=== PATIENT | female | born 2005 | race Two or more races ===

== ENCOUNTER 2025-04-06 10:24 | Outpatient (AMB) | payer OTHER, SELFPAY ==
--- OUTSIDE RECORDS SUMMARY | 2025-04-06 11:03 | XMS_ITS | Clinical Summary ---
Author Organization [facility] Address [address] [place] [address] Care Team Providers Care Surveyor Chain Helper Name Role Phone Unavailable Primary Care Provider Unavailabl e Source Comments PLEASE NOTE, if this patient is a minor, it may be UNLAWFUL to discuss sensitive information that is contained in these records (such as FAMILY PLANNING, MENTAL HEALTH or SUBSTANCE ABUSE) with the minor patient's parent or other person without the patient's specific authorization.[facility] Allergies No known active allergies Medications No known medications Active Problems No known active problems Encounters Date Type Department Care Team Description 02/04/2025 3:40 PM EDT Office Visit [facility] [address] [place] [phone] Ra Garcia DDS from Last 3 Months Social History Tobacco Use Types Packs/Day Years Used Date Smoking Tobacco: Never Passive Smoke Exposure: Never Smokeless Tobacco: Never Tobacco Cessation:Counseling Given: Not Answered Social Connections Answer Date Recorded Connectedness 0 05/16/2024 Financial Resource Strain Answer Date R ecorded Financial Resource Strain 0 2023 Stress Answer Date Recorded Stress 0 04/11/2024 Physical Activity Answer Date Recorded Physical Activity 0 04/11/2024 Food Insecurity Answer Date Recorded Food 0 05/29/2024 Transportation Needs Answer Date Record ed Transportation 0 04/11/2024 Housing Stability Answer Date Recorded Housing 0 04/11/2024 Safety and Environment Answer Date Paulino rded Safety 0 04/11/2024 Utilities Answer Date Recorded Utilities 0 04/11/2024 Employment Answer Date Recorded Stress 0 05/16/2024 Comments Unknown Sex and Gender Information Value Date Recorded Sex Assigned at Not on file Legal Sex Female 10:04 AM PDT Gender Identity Not on file Sexual Orientation Not on file Last Filed Vital Signs Vital Sign Reading Time Taken Comments Blood Pressure 122/76 12/12/2024 2:00 PM EDT Pulse 85 12/12/2024 2:00 PM EDT Temperature - - Respiratory Rate - - Oxygen Saturation - - Inhaled Oxygen Concentration - - Weight - - Height - - Body Mass Index - - Plan of Treatment Upcoming Encounters Date Type Department Care Team (Late st Contact Info) Description 05/28/2025 4:20 PM EDT Office Visit [facility] [address] [place] [phone] Eduardo Joy [address] [place] [address] Health Maintenance Due Date Last Done Comments Anxiety Screening 2005 Dental Perio Charting 2005 Hepatitis C Screening 2005 STI Counseling 2005 Imm-MMR (1 of 1 - Standard series) 2006 Chlamydia Screening 2018 Gonorrhea Screening 2018 Imm-Varicella (1 of 2 - 13+ 2-dose series) 2018 HIV Screening 2020 Imm-HPV (1 - 3-dose series) 2020 Relationship Safety Screening/Counseling 2020 [id number] ( - season) 2024 Imm-DTaP/Tdap/Td (1 - Tdap) 2024 Imm-Hepatitis B (1 of 3 - 19 + 3-dose series) 2024 Alcohol and Drug Screen 09/03/2024 Depression Annual Screen 09/03/2024 Imm-Influenza (#1) 2025 Dental Examination 05/29/2025 11/24/2024, 04/24/2024 Dental Prophy 05/29/2025 11/24/2024, 05/09/2024 Dental BW 11/26/2025 11/24/2024, 04/24/2024 Tobacco Screening 02/04/2026 02/04/2025 Hypertension Screening (#1) 12/12/2027 Dental FMX/Pano 04/26/2029 04/24/2024, 04/14/2024 Imm-Hepatitis A Aged Out No longer el igible based on patient's age to complete this topic Procedures Procedure Name Priority Date/Time Associated Diagnosis Comments INTRAORAL - PERIAPICAL FIRST RADIOGRAPHIC IMAGE Routine 02/04/2025 3:40 PM EDT Symptomatic irreversible pulpitis LIMITED ORAL EVALUATION - PROBLEM FOCUSED Routine 02/04/2025 3:40 PM EDT Symptomatic irreversible pulpitis BITEWINGS - FOUR RADIOGRAPHIC IMAGES Routine 11/24/2024 4:20 PM EDT Caries PROPHYLAXIS - ADULT Routine 11/24/2024 4 :20 PM EDT Caries PERIODIC ORAL EVALUATION ESTABLISHED PATIENT Routine 11/24/2024 4:20 PM EDT Caries Full INTRAORAL - COMP SERIES OF RADIOGRAPHIC IMAGES Routine 04/24/2024 1:00 PM EDT Caries from Last 3 Months or Most Recently Relevant to Health Maintenance Insurance [place] MEDICAID Member Subscriber Plan / Payer (Ef fective 2021-Present) Name:Tanmay Graciela Relation to Subscriber:Self Name:Tanmay Graciela Payer ID:[id number] Group ID:Not on file Type:Medicaid Address: [id number] DENTAL [place] MEDICAID DENTAL
--- OUTSIDE RECORDS SUMMARY | 2025-04-06 11:03 | XMS_ITS | Clinical Summary ---
Author Organization [facility] Address [address] [place] [address] Care Team Providers Care Green Chain Puller Name Role Phone Unavailable Primary Care Provider Unavailabl e Allergies No known active allergies Medications acetaminophen (Tylenol 8 Hour) 650 MG ER tablet Take 1 tablet (650 mg) by mouth every 8 (eight) hours if needed for mild pain. Do not crush, chew, or split. 30 tablet 03/05/2025 Active ibuprofen 600 MG tablet Take 1 tablet (600 mg) by mouth 3 times daily. 30 tablet 03/05/2025 Active amoxicillin (Amoxil) 500 MG capsule Take 1 capsule (500 mg) by mouth every 8 (eight) hours for 7 days. 21 capsule 03/05/2025 03/12/20 25 Active Problems Problem Noted Date Diagnosed Date Symptomatic periapical periodontitis 03/05/2025 Encounters Date Type Department Care Team Description 03/05/2025 1:00 PM EDT Office Visit [facility] [address] [place] [address] Gage Mejias DDS Symptomatic periapical periodontitis (Primary Dx) from Last 3 Months Social History Tobacco Use Types Packs/Day Years Used Date Smoking Tobacco: Never Assessed Comments Unknown Sex and Gender Information Value Date Recorded Sex Assigned at Female 03/05/2025 8:19 AM EDT Legal Sex Female 8:12 AM EDT Gender Identity Female 03/05/2025 8:19 AM EDT Sexual Orientation Straight 03/05/2025 8: 19 AM EDT Plan of Treatment Health Maintenance Due Date Last Done Comments Chlamydia and Gonorrhea Screening 2005 Dental Oral Exam 2005 Dental Prophylaxis 2005 Dental X-Ray: Bitewings 2005 Dental X-Ray: Full Mouth 2005 Depression Screening 2005 HIV Screening 2005 SDOH Screening 2005 Disability Screening 2005 Fluoride Varnish 02/12/2006 MMR Vaccines (1 of 1 - Stand haider series) 2006 Alcohol/Substance Use Screening 2017 Tobacco Screening 2017 Varicella Vaccines (1 of 2 - 13+ 2-dose series) 2018 Family Planning (PISQ) 2020 HPV Vaccines (1 - 3-dose series) 2020 Meningococcal B Vaccine (1 o f 2 - Standard) 2021 Hepatitis C Screening 2023 COVID-19 Vaccine (1 - 2023-2 5 season) 2024 DTaP/Tdap/Td Vaccines (1 - Tdap) 2024 Hepatitis B Vaccines (1 of 3 - 19+ 3-dose series) 2024 Influenza Vaccine (#1) 2025 Zoster Vaccines (1 of 2) 2055 RSV Patients and Pa tients Aged 60 years or older (1 - 1-dose 75+ series) 2080 HIB Vaccines Aged Out No longer eligi ble based on patient's age to complete this topic Hepatitis A Vaccines Aged Out No long er eligible based on patient's age to complete this topic IPV Vaccines Aged Out No longer eligi ble based on patient's age to complete this topic Meningococcal Vaccine Aged Out No raquel thelma eligible based on patient's age to complete this topic Pneumococcal Vaccine: Pediat rics (0 to 5 Years) and At-Risk Patients (6 to 49) Years Aged Out No longer eligible b ased on patient's age to complete this topic RSV under 20 months Aged Out No longe r eligible based on patient's age to complete this topic Rotavirus Vaccines Aged Out No longer eligible based on patient's age to complete this topic Procedures Procedure Name Priority Date/Time Associated Diagnosis Comments LIMITED ORAL EVALUATION - PROBLEM FOCUSED Routine 03/05/2025 1:00 PM EDT 18 INTRAORAL - PERIAPICAL FIRST RADIOGRAPHIC IMAGE Routine 03/05/2025 1:00 PM EDT CASE PRESENTATION, DETAILED AND EXTENSIVE TREATMENT PLANNING Routine 03/05/2025 1:00 PM EDT 19 MO COMPOSITE FILLING Routine 03/05/20 12:00 AM EDT 18 O COMPOSITE FILLING Routine 5 12:00 AM EDT from Last 3 Months Insurance [facility] MEDICAID STAND ADULT
--- NOTE | 2025-04-06 11:06 | AM.OFFWIN_ITS ---
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 c/o numbness RT side of face Director Of Email Marketing Required: Yes Director Of Email Marketing Name: Awais #[id number] Allergies No Known Allergies Allergy (Verified 04/06/25 11:12) Do you need a note to return to daycare/school/sports/work: No HPI HPI Comments History of Present Illness Details History of Present Illness - The patient is a 19-year-old [place] s peaking female presenting with facial asymmetry and inability to close her right eye properly. - Symptoms began a week ago with tearing and pain under the right eye, progressing to difficulty with facial movements. - She experiences discomfort during acti vities like showering due to inability to close the right eye. - Recently developed sore throat and fev er. - No previous similar episodes and lacks a primary care physician. - She denies PURI, ear pain, cough, CP, SO B, visual changes, blurry visions, weakness, dizziness or confusion. Physical Exam General: Cooperative, healthy appearing, comfortable, no acute distress and well developed Orientation: Patient oriented x3 Limitations: No limitations Head: Normal to inspection Ears: Hearing grossly normal bilaterally Nose: Normal external nose present Face and sinus: Abnormal facial exam; asymmetrical facial movement Eyes: Appearance abnormal; tearing noted. Can't close eyelid all the way. Neck: Normal visual inspection and Yes full ROM Respiratory: Normal respiratory effort and able to speak in complete sentences. Clear to auscultation bilaterally Cardiovascular: Regular rate and rhythm. Normal S1 and S2 GI: Normal to inspection. Soft to palpation and nontender Skin: No rashes or lesions noted Neuro: Patient oriented x3. Facial droop noted on the right. Unable to smile on the right, corner of mouth drooping. Unable to lift eyebrow on the right. Extremities: Normal to inspection; strength is good and equal 5/5 on the UE and LE. Patient was informed and verbally consented to the use of an ambient scribe for clinic note documentation during this visit. 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 - valtrex 1 gm TID for 7 days - eye drops to the right eye - eye patch to protect eye when sleeping - Recommend finding a primary care physician for future health needs. - Advise emergency room visit if no improvement with treatment. Medications: New prednisone 60 mg (3 x 20 mg) PO daily 21 tabs 0RF 7 days valacyclovir 1,000 mg PO Q8H 21 tabs 0RF 7 days Coding Level of Care Code Est Pt Level 4 (09719) Diagnoses Claros's palsy G51.0
[2025-04-06 11:07] VITALS: BP 102/64; PULSE 82; TEMP 36.6; O2SAT 98
== END 2025-04-06 11:57 | disposition home or self-care (01) ==
PROVIDERS: Visit Provider Physician Assistant Medical
DX: G51.0 Bell's palsy (principal)

== ENCOUNTER → 2025-04-06 10:24 | Outpatient (BNVA) | payer OTHER, SELFPAY | PROVIDERS: Visit Provider Physician Assistant Medical | DX: G51.0 Bell's palsy (principal) | CPT/HCPCS: 99212 ==

== ENCOUNTER 2025-04-22 12:24 | Outpatient (REF) | payer OTHER, SELFPAY ==
[2025-04-23 05:53] LABS: Lyme Abs Screen <0.90 index
== END 2025-04-22 12:25 | disposition home or self-care (01) ==
LOC: HO.HMGCLDS 12:24
PROVIDERS: Visit Provider Physician Assistant
DX: G51.0 Bell's palsy (principal); H57.89 Other specified disorders of eye and adnexa; Z01.84 Encounter for antibody response examination
CPT/HCPCS: 36415; 86617; 86618; 99212

== ENCOUNTER 2025-04-22 12:24 | Outpatient (AMB) | payer OTHER, SELFPAY ==
--- NOTE | 2025-04-22 12:37 | MHC.OFFWIV ---
Intake Vital Signs 04/22/25 12:40 Weight 154 lb BP 100/66 Blood Pressure Location Lt brachial Position Sitting Pulse 92 Pulse Source Pulse Oximeter Temp 98.6 F Temp Source Oral Pulse Oximetry (%) 99 Oxygen Delivery Method Room Air Intake Visit Reasons: EP still having problems with RT side of face Intake Note: presents with continuos concerns for claros's palsy, states her s/s are improved after taking prednisone and valacycovir and is hoping for refills Home Appliance Installer Required: Yes Home Appliance Installer Language: [employer]obile Club Membership Sales Agent Name: [phone] [id number] Allergies No Known Allergies Allergy (Verified 04/22/25 12:42) Do you need a note to return to daycare/school/sports/work: No HPI HPI Comments History of Present Illness Details Patient is a 19yo F who presents post Cory Palsy Video screen print operator used throughout entire interview She was diagnosed with Cory Palsy on 04/06/25 after having symptoms x 1 week Admits to R sided eye and lip drooping. She was given valacyclovir and prednisone Symptoms improved on L side She said she has 4 pills left for this week She said as for remaining symptoms, she has mouth drooping still She said eye feels fine and sometimes has minimal eye watering and sometimes still gets soap in her eye in the shower because of inability to fully close. No fever or chills Denies rashes or working outside or known tick bite She has no doctors so she has not had any follow up Patient said she has not experienced any lyme disease symptoms such as headaches, body aches or fatigue No other weakness numbness or tingling elsewhere on her body Review of Systems Const Denies chills, Denies fatigue, Denies fever(s), Denies headache(s) and Denies weakness Eyes Denies blurry vision, Denies change in vision, Reports eye discharge (slight tearing) and Reports other (improved R lateral eye drooping) ENT Denies dizziness, Denies otalgia, Denies headache(s), Denies nasal congestion and Denies throat swelling Card Denies chest pain and Denies syncope Resp Denies cough Musc Denies numbness and Denies tingling Skin/Breast Denies rash and Denies skin pain Neuro Denies confusion, Denies dizziness, Denies syncope, Denies headache(s), Denies numbness, Denies tingling and Denies weakness Psych Denies confusion Endo Denies fatigue Aller/Immun Denies throat swelling Physical Exam Exam Exam: General: Non-toxic, NAD. Speaking full sentences. Skin: Warm dry throughout. No vesicular lesions noted to face, neck. scalp. Face has no edema or erythema Eye: EOMI, PERRL. No conjunctival erythema or discharge noted. HENT: Airway patent. Uvula midline. No pharyngeal erythema or edema. No INTERMEDIATE DESIGNER. Bilateral canals clear. TM non-erythematous, non-bulging. No TM perforation or hemotympanum noted. Respiratory: CTA bilaterally. No wheezes, rales or rhonchi Cardiac: RRR. No murmur MSK: Full ROM extremities. Neurology: A/O x 3. CN testing shows deficit R side on facial nerve. Facial movement shows slight drooping R side of mouth with smiling. Unable to fully blow out R cheek. It appears pt can fully open and close bilateral eyelids. No aphasia. 5/5 strength upper extremities. Gait without abnormality Psych: Good mood and affect Vital Signs: Last Vital Signs Temp 98.6 F 04/22/25 12:40 Pulse 92 04/22/25 12:40 BP 100/66 04/22/25 12:40 Pulse Ox 99 04/22/25 12:40 Oxygen Delivery Method Room Air 04/22/25 12:40 Const General: No confusion Orientation/consciousness: No confusion Neuro General: No confusion Assessment & Plan Assessment & Plan (1) Claros palsy: Code(s): G51.0 - Claros's palsy Plan: Patient seen and evaluated. Symptoms consistent with Cory Palsy. Discussed she was on appropriate duration of both medications. Acyclovir can be given for 10 days total so will give 3 additional says of antiviral. Discussed no additional prednisone warranted Discussed lyme disease lab Physical exam rules of herpes zoster, acute CVA. Discussed importance of seeing a new PCP and recommended she stop at the front to make appointment Also discussed need for 3-4 months of resolution of symptoms but if anything worsens or changes to be seen immediately Patient gave verbal understanding and had no additional questions or concerns at time of discharge All questions answered video screen print operator used the entire visit. Orders: Orders Lyme IgG/IgM w/reflex to WB Today G51.0 - Claros's palsy Medications: New valacyclovir 1,000 mg PO Q8H 9 tabs 0RF 3 days Coding Level of Care Code Est Pt Level 3 (54550) Diagnoses Claros palsy G51.0
[2025-04-22 12:40] VITALS: BP 100/66; PULSE 92; TEMP 37; O2SAT 99
--- OUTSIDE RECORDS SUMMARY | 2025-04-22 13:19 | XMS_ITS | Clinical Summary ---
Author Organization [facility] Address [address] [place] [address] Care Team Providers Care English Horn Player Name Role Phone Unavailable Primary Care Provider [...] Description 02/04/2025 3:40 PM EDT Office Visit [facility] [address] [place] [phone] Ra Garcia DDS from Last 3 Months [...] Description 05/28/2025 4:20 PM EDT Office Visit [facility] [address] [place] [phone] Eduardo Joy [address] [place] [address] Health Maintenance Due Date Last Done Comments Anxiety Screening 2005 Dental Perio Charting 2005 Hepatitis C Screening 2005 STI Counseling 2005 Imm-MMR (1 of 1 - Standard series) 2006 Chlamydia Screening 2018 Gonorrhea Screening 2018 Imm-Varicella (1 of 2 - 13+ 2-dose series) 2018 HIV Screening 2020 Imm-HPV (1 - 3-dose series) 2020 Relationship Safety Screening/Counseling 2020 [id number] ( - season) 2024 Imm-DTaP/Tdap/Td (1 - [...] Most Recently Relevant to Health Maintenance Insurance [place] MEDICAID Member Subscriber Plan / Payer (Ef fective 2021-Present) Name:Tanmay Graciela Relation to Subscriber:Self Name:Tanmay Graciela Payer ID:[id number] Group ID:Not on file Type:Medicaid Address: [id number] DENTAL [place] MEDICAID DENTAL
--- OUTSIDE RECORDS SUMMARY | 2025-04-22 13:19 | XMS_ITS | Clinical Summary ---
Author Organization [facility] Address [address] [place] [address] Care Team Providers Care C2 Tactical Analysis Technician Name Role Phone Unavailable Primary Care Provider [...] 3 times daily. 30 tablet 03/05/2025 Active Active Problems Problem Noted Date Diagnosed Date Symptomatic periapical periodontitis 03/05/2025 Encounters Date Type Department Care Team Description 03/05/2025 1:00 PM EDT Office Visit [facility] [address] [place] [address] Gage Mejias DDS Symptomatic periapical periodontitis (Primary [...] EDT 19 MO COMPOSITE FILLING Routine 03/05/20 25 12:00 AM EDT 18 O COMPOSITE FILLING Routine 5 12:00 AM EDT from Last 3 Months Insurance [facility]AL[facility] MEDICAID STAND ADULT
== END 2025-04-22 13:06 | disposition home or self-care (01) ==
PROVIDERS: Visit Provider Physician Assistant
DX: G51.0 Bell's palsy (principal)

== ENCOUNTER 2025-06-03 11:12 | Outpatient (AMB) | payer OTHER, SELFPAY ==
--- NOTE | 2025-06-03 11:28 | MHC.OFFWIV ---
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 - The ear pain began approximately four days ago, initially presenting as a clogged sensation in the left ear, which gradually progressed to significant pain. - The patient reports associated symptoms including neck pain, headache, throat discomfort, and chills. - The patient has not attempted to clean the ear due to concerns about exacerbating the condition. - There is no history of ear discharge, but the patient experiences a clicking sound and heightened auditory sensitivity in the affected ear. - The patient has been taking Tylenol for pain relief, but the pain persists, prompting the visit. - The patient denies any antibiotic allergies. - She denies drainage, bleeding, PURI, dizziness, fever, chills, sore throat, or cough. Physical Exam General: Cooperative, healthy appearing, comfortable, no acute distress and well developed Ears: External ears normal bilaterally. No tragus or mastoid tenderness noted. Tympanic membrane rupture suspected on the left side with blood in the canal. Face and sinus: Normal facial exam. No TTP of the sinuses. Neck: Tenderness noted. Normal visual inspection. Full ROM. No lymphadenopathy noted. Respiratory: Normal respiratory effort and able to speak in complete sentences. Clear to auscultation bilaterally. No w/r/r noted. Cardiac: RRR, no m/r/g noted. Normal S1 and S2 noted. Skin: No rashes or lesions noted Patient was informed and verbally consented to the use of an ambient scribe for clinic note documentation during this visit. Review of Systems Const All systems reviewed & are unremarkable except as noted in HPI and below Physical Exam Vital Signs: Last Vital Signs Temp 98.5 F 06/03/25 11:32 Pulse 82 06/03/25 11:32 BP 116/60 06/03/25 11:32 Pulse Ox 99 06/03/25 11:32 Oxygen Delivery Method Room Air 06/03/25 11:32 Assessment & Plan Assessment & Plan (1) Tympanic membrane rupture: Code(s): H72.90 - Unspecified perforation of tympanic membrane, unspecified ear Qualifiers: Laterality: left Qualified Code(s): H72.92 - Unspecified perforation of tympanic membrane, left ear Plan Most likely TM rupture vs OE vs OM vs effusion plan - avoid water or anything in the ears - Prescribe antibiotics to address the ear infection and alleviate pain. - Recommend the use of Tylenol or Motrin for pain management. - Advise follow-up with primary care if symptoms do not improve, with potential referral to a specialist. Medications: New amoxicillin-pot clavulanate 875-125 mg 1 tab PO Q12H PRN 20 tabs 0RF TM rupture 10 days Coding Level of Care Code Est Pt Level 3 (35033) Diagnoses Perforation of left tympanic membrane H72.92 Laterality: left
[2025-06-03 11:32] VITALS: BP 116/60; PULSE 82; TEMP 36.9; O2SAT 99
--- OUTSIDE RECORDS SUMMARY | 2025-06-03 12:46 | XMS_ITS | Clinical Summary ---
Author Organization [facility] Address [address] [place] [address] Care Team Providers Care Manager Report Name Role Phone Unavailable Primary Care Provider [...] medications Active Problems No known active problems Social History Tobacco Use Types Packs/Day Years [...] Mass Index - - Plan of Treatment Health Maintenance Due Date Last Done Comments Anxiety Screening 2005 Dental Perio Charting 2005 Hepatitis C Screening 2005 STI Counseling 2005 Imm-MMR (1 of 1 - Standard series) 2006 Chlamydia Screening 2018 Gonorrhea Screening 2018 Imm-Varicella (1 of 2 - 13+ 2-dose series) 2018 HIV Screening 2020 Imm-HPV (1 - 3-dose series) 2020 Relationship Safety Screening/Counseling 2020 Imm-DTaP/Tdap/Td (1 - Tdap) 2024 Imm-Hepatitis B (1 of 3 - 19 + 3-dose series) 2024 Alcohol and Drug Screen 09/03/2024 Depression Annual Screen 09/03/2024 [id number] ( season) 2025 Imm-Influenza (#1) 2025 Dental Examination 05/29/2025 11/24/2024, 04/24/2024 Dental Prophy 05/29/2025 11/24/2024, 05/09/2024 Dental BW 11/26/2025 11/24/2024, 04/24/2024 Tobacco Screening 02/04/2026 02/04/2025 Hypertension Screening (#1) 12/12/2027 Dental FMX/Pano 04/26/2029 04/24/2024, 04/14/2024 Imm-Hepatitis A Aged Out No longer el igible based on patient's age to complete this topic Imm-IPV (Polio) Aged Out No longer el igible based on patient's age to complete this topic Procedures Procedure Name Priority Date/Time Associated Diagnosis Comments BITEWINGS - FOUR RADIOGRAPHIC IMAGES Routine 11/24/2024 4:20 PM EDT Caries PROPHYLAXIS - ADULT Routine 11/24/2024 4 :20 PM EDT Caries PERIODIC ORAL EVALUATION ESTABLISHED PATIENT Routine 11/24/2024 4:20 PM EDT Caries Full INTRAORAL - COMP SERIES OF RADIOGRAPHIC IMAGES Routine 04/24/2024 1:00 PM EDT Caries from Last 3 Months or Most Recently Relevant to Health Maintenance Insurance [place] MEDICAID Member Subscriber Plan / Payer (Ef fective 2021-Present) Name:Graciela Donato Relation to Subscriber:Self Name:Graciela Donato Payer ID:[id number] Group ID:Not on file Type:Medicaid Address: [address] [place] [id number] [place] [address] DENTAL [place] DENTAL
--- OUTSIDE RECORDS SUMMARY | 2025-06-03 12:46 | XMS_ITS | Clinical Summary ---
Author Organization [employer] Address [address] [place] [address] Care Team Providers Care Dust Operator Name Role Phone Unavailable Primary Care Provider [...] Description 03/05/2025 1:00 PM EDT Office Visit [facility] [address] [place] [address] Gage Mejias DDS Symptomatic periapical periodontitis (Primary [...] - Standard) 2021 Hepatitis C Screening 2023 DTaP/Tdap/Td Vaccines (1 - Tdap) 2024 Hepatitis B Vaccines (1 of 3 - 19+ 3-dose series) 2024 COVID-19 Vaccine (1 - 2023-2 5 season) 2025 Influenza Vaccine (#1) 2025 Zoster Vaccines (1 [...] AM EDT from Last 3 Months Insurance DENTAL-[facility] MEDICAID STAND ADULT [facility] STANDARD [facility] MEDICAID STAND ADULT
== END 2025-06-03 12:16 | disposition home or self-care (01) ==
PROVIDERS: Visit Provider Physician Assistant Medical
DX: H72.92 Unspecified perforation of tympanic membrane, left ear (principal)

== ENCOUNTER → 2025-06-03 11:12 | Outpatient (BNVA) | payer OTHER, SELFPAY | PROVIDERS: Visit Provider Physician Assistant Medical | DX: H72.92 Unspecified perforation of tympanic membrane, left ear (principal) | CPT/HCPCS: 99212 ==

== ENCOUNTER 2025-06-03 13:06 | Emergency (ER) | payer OTHER, SELFPAY ==
[2025-06-03 13:44] VITALS: BP 113/62; PULSE 69; RESP 16; TEMP 36.7; O2SAT 99; BMI 30.2
--- NOTE | 2025-06-03 14:09 | ED.EAR ---
HPI - Ear Problem General Chief complaint: Ear Problems Stated complaint: L side neck pain/headache Time Seen by Provider: 06/03/25 14:09 Source: patient and RN notes reviewed Mode of arrival: ambulatory Limitations: no limitations History of Present Illness ED Provider: Viktoria Portillo PA-C [facility] Narrative: This is a 19-year-old female who presents emergency department with concerns of left ear pain which started 4 days ago. Patient states that she went to an urgent care this morning and they ?did not do anything for her . Upon review of this urgent care note, patient was diagnosed with otitis media versus TM perforation and was prescribed antibiotics. 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 She states that she took Tylenol however this did not help her with any pain. She denies any fevers or chills. No ear discharge. She does report decreased hearing in her left ear. Denies placing any objects in her left ear. No other complaints or concerns at this time. MD Complaint: ear pain and decreased hearing Location: left ear Duration: constant Relieving factors: nothing Exacerbating factors: nothing Discharge from ear: no Associated symptoms ear: decreased hearing Related Data Home Medications ?Medication ?Instructions ?Recorded ?Confirmed norgestrel 0.3 mg-ethinyl 1 tab PO DAILY 04/06/25 estradiol 30 mcg tablet (Jaguar (28)) Previous Rx's ?Medication ?Instructions ?Recorded amoxicillin 875 mg-potassium 1 tab PO Q12H PRN TM rupture 10 06/03/25 clavulanate 125 mg tablet days #20 tabs Allergies Allergy/AdvReac Type Severity Reaction Status Date / Time No Known Allergies Allergy Verified 06/03/25 13:47 Review of Systems Review of Systems: Constitutional : No Fever, No Chills ENT/Mouth : No sore throat, No Rhinorrhea Eyes: No Eye Pain, No Swelling, No Redness Cardiovascular : No Chest Pain, No SOB Respiratory : No Cough, No Sputum Gastrointestinal : No Nausea, No Vomiting, No Diarrhea, No abdominal Pain Genitourinary : No Dysuria, No Hematuria Musculoskeletal : No joint pain, No Myalgias, No Joint Swelling Skin : No Skin Lesions, positive skin rash Neuro : No Weakness, No Numbness All other systems reviewed and are negative Yes all other systems are reviewed and are negative Constitutional: Constitutional: Reports as per [facility] Past Medical History Attestation statement: The following information was validated with the patient. Social History Social History Advance Directives: No Advance Directives Information Provided: Yes Do you have a plan to hurt others: No Plan Physical Exam Exam: Exam: General: Awake, alert, and oriented X3. No acute distress. HEENT: Left TM with exudates noted, slight blood noted in the ear canal. Mild pain with palpation overlying the tragus. No mastoid fluctuance or pain. No cervical lymphadenopathy noted. CVS: Normal heart rate and rhythm. Pulses normal. Respiratory: No respiratory distress Skin: Warm, dry, no rashes noted to exposed skin. Normal skin color. Normal skin turgor. Extremities: Normal to inspection Neuro: Oriented X 3. No motor deficit. No sensory deficit. Vital Signs: Vital Signs: Last Vital Signs Temp 98.1 F 06/03/25 14:16 Pulse 69 06/03/25 14:16 Resp 16 06/03/25 14:16 BP 113/62 06/03/25 14:16 Pulse Ox 99 06/03/25 14:16 O2 Del Method Room Air 06/03/25 14:16 BMI result Body Mass Index 30.2 Medical Decision Making Medical Decision Making MDM Narrative: This is a 19-year-old female who presents emergency department with concerns of left ear pain. On arrival, vital signs within normal limits. Left ear with evidence om, possible TM perforation. She was already prescribed antibiotics. Encouraged to take ibuprofen and Tylenol. Given strict return precautions, she understands and agrees with plan. Patient stable for discharge. Differential Diagnosis Differential Diagnoses: The differential diagnosis associated with the presentation includes Om, awake, TM perforation, otalgia Discharge Plan Discharge Clinical Impression: Otitis media Patient Disposition: Home, Self-Care Instructions: Ear Infection (ED) Additional Instructions: You were seen in the emergency department due to left ear pain. You are already seen at urgent care this morning you were prescribed Augmentin. Please take the full course. Take ibuprofen and or Tylenol as needed for pain and symptoms. She has ibuprofen 600 mg every 6 hours, 2 hours later you may take Tylenol a 1000 mg. Alternating between both of these medications can provide you with some relief. If any new or worsening symptoms occur including but not limited to worsening pain, please return for re-evaluation. You may also follow-up with the [facility]. Prescriptions: No Action amoxicillin-pot clavulanate 875-125 mg tablet 1 tab PO Q12H PRN (Reason: TM rupture) 10 Days Qty: 20 0RF Cryselle (28) 0.3-30 mg-mcg tablet 1 tab PO DAILY Referrals: [facility] [Provider Group] Interventions: ED Discharge Assessment Last Done: 06/03/25 14:16 ED Discharge Assessment Last Done: 06/03/25 14:15 Discharge Date/Time: 06/03/25 14:17 Print Language: Nepali
[2025-06-03 14:15] VITALS: BP 113/62; PULSE 69; RESP 16; TEMP 36.7; O2SAT 99
[2025-06-03 14:16] VITALS: BP 113/62; PULSE 69; RESP 16; TEMP 36.7; O2SAT 99
== END 2025-06-03 14:17 | disposition home or self-care (01) ==
PROVIDERS: Emergency Provider Emergency Medicine
DX: H66.92 Otitis media, unspecified, left ear (principal)
CPT/HCPCS: 99282; 99283

== ENCOUNTER 2025-06-06 13:54 | Emergency (ER) | payer OTHER, SELFPAY ==
--- NOTE | ~2025-06-06 | CT_ITS ---
CLINICAL HISTORY: pain, concern for mastoiditis CT temporal bones without contrast Comparison: None available Findings: Left auricular/periauricular soft tissue swelling. Narrowing of the left external auditory canal with secretions. Thickness of the left tympanic membrane is not well evaluated due to adjacent secretions. Partial opacification of the left middle ear cavity. The left mastoid air cells are clear. No right auricular/periauricular soft tissue swelling. Normal right external auditory canal. No thickening of the right tympanic membrane. The right middle ear cavity and mastoid air cells are clear. Bilateral middle ear ossicles, cochlea, semicircular canals, internal auditory canals and 7th nerve courses are normal. The scutum are sharp bilaterally. Clear paranasal sinuses. Temporomandibular joints are intact. No acute fracture or dislocation. Impression: Left otitis externa and otitis media. No left mastoiditis. This document has been electronically signed by: Renee Amin MD on 06/06/2025 16:54:01
[2025-06-06 14:09] VITALS: BP 116/67; PULSE 87; RESP 18; TEMP 36.4; O2SAT 98; BMI 28.3
--- NOTE | 2025-06-06 14:09 | ED_ITS ---
HPI - General Adult General Chief complaint: Ear Problems Stated complaint: ear pain, seen here a few days ago Time Seen by Provider: 06/06/25 14:24 Source: patient Mode of arrival: ambulatory Limitations: no limitations History of Present Illness HPI narrative: 19-year-old female presents for evaluation of left ear pain. Patient states she was seen in the emergency department on June 03 after going to urgent care because of left ear pain. At that time she was told that she had a TM perforation and was placed on Augmentin. Patient states she has been taking this medication since then. She presents to the emergency department because of the pain. Today the patient states she is unable to hear out of her left ear and is having increased pain to the left ear, jaw and some radiating to the back of her head. She denies any fevers chills nausea or vomiting. No nausea or vomiting. No vertiginous symptoms. She has otherwise been feeling well. No history of similar. No history of diabetes. Related Data Home Medications ?Medication ?Instructions ?Recorded ?Confirmed norgestrel 0.3 mg-ethinyl 1 tab PO DAILY 04/06/25 estradiol 30 mcg tablet (Jaguar (28)) Previous Rx's ?Medication ?Instructions ?Recorded amoxicillin 875 mg-potassium 1 tab PO Q12H PRN TM rupt ure 10 06/03/25 clavulanate 125 mg tablet days #20 tabs ciprofloxacin HCl 0.2 % ear drops 0.25 ml otic (ears) Q12H #14 ea 06/06/25 in a dropperette Allergies Allergy/AdvReac Type Severity Reaction Status Date / Time No Known Allergies Allergy Verified 06/06/25 14:15 Review of Systems 2 Review of Systems: Yes all other systems are reviewed and are negative Constitutional: Constitutional: Reports headache(s) Eyes: Eyes: Denies diplopia ENT: Denies vertigo, Denies dizziness, Reports ear discharge, Reports otalgia, Reports headache(s), Reports hearing loss, Denies sore throat and Denies throat swelling Respiratory: Respiratory: Denies cough Neurologic: Denies vertigo, Denies dizziness and Reports headache(s) Allergic/Immunologic: Allergic/Immunologic: Denies throat swelling PMFSH Social History Social History Advance Directives: No Advance Directives Information Provided: Yes Do you have a plan to hurt others: No Plan Physical Exam ED Vital Signs: Vital Signs - 24 hr 06/06/25 14:09 06/06/25 17:50 Temperature 97.6 F 0 F L Pulse Rate 87 74 Respiratory Rate 18 18 Blood Pressure 116/67 112/64 Pulse Oximetry 98 99 Oxygen Delivery Method Room Air Room Air BMI result Body Mass Index 28.3 HENMT Other: Right auditory canal is patent with a pearly white TM. Left auditory canal has copious amounts of purulent whitish material just past the entrance to the auditory canal. Unable to view distal or the TM. Oropharynx is moist. There was no erythema. No evidence of [employer]. Tolerate secretions. Full range of motion of the mandible. Neck Other: Mild tenderness to the left mastoid region without any crepitus or erythema. No Brudzinski. Lymphatic: no lymphadenopathy noted Resp Auscultation: clear to auscultation bilaterally Cardio Rate: regular rate Rhythm: regular rhythm Course Course Course Narrative: Medical screening exam performed. Please refer to detailed history, exam, evaluation, and management by primary provider. Reevaluation(s) Reevaluation #1: CT returned, no evidence of mastoiditis. Confirming otitis media and otitis externa. Unable to confirm on CT or with physical exam if TM is intact. We will add ciprofloxacin drops. Patient also providing ENT referral. 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 She expresses understanding and has no further questions at this time. Medical Decision Making Medical Decision Making [facility] Narrative: 19-year-old female with no significant medical history, presents with worsening left ear pain and hearing loss due to recent otitis media and TM perforation. Parent discharge is noted. No improvement in symptoms despite antibiotics. Due to the patient complaining of left jaw and mastoid pain, we will further assess for mastoiditis however lower suspicion given that the patient is not having severe pain, fevers. Check labs, CT. Discussed with Dr. Downey. If negative, patient will be discharged home with ear drops and follow up with ENT. Differential Diagnosis Differential Diagnoses: The differential diagnosis associated with the presentation includes Mastoiditis Otitis media Otitis externa TM perforation Lab Data MDM Lab Attestation statement: I reviewed the patient's lab results. 06/06/25 14:38 06/06/25 14:38 Labs: Lab Results 06/06/25 Range/Units 14:38 WBC 9.2 (4.8-10.8) X10*3/uL RBC 4.56 (4.20-5.50) X10*6/uL Hgb 12.9 (12.0-16.0) g/dl Hct 38.6 (37.0-47.0) % MCV 84.6 (80.0-98.0) fL MCH 28.3 (27.0-33.0) pg MCHC 33.4 (31.0-35.0) g/dl RDW 13.3 (11.0-16.0) % Plt Count 251 (160-400) X10*3/uL MPV 10.7 (9.4-12.3) fL Immature Gran % (Auto) 0.2 (0.0-0.4) % Neut % (Auto) 60.5 (45-73) % Lymph % (Auto) 27.5 (20-40) % [place] % (Auto) 7.8 (2-11) % Eos % (Auto) 3.7 (0-4) % Baso % (Auto) 0.3 (0-2) % Lymph # (Auto) 2.5 (1.2-4.9) X10*3/uL [place] # (Auto) 0.7 (0.1-1.2) X10*3/uL Eos # (Auto) 0.3 (0.0-0.4) X10*3/uL Baso # (Auto) 0.0 (0.0-0.2) X10*3/uL Abs Immat Gran (auto) 0.02 (0.00-0.03) X10*3/uL Absolute Neuts (auto) 5.6 (2.0-8.3) x10*3/uL Absolute Nucleated RBC 0.000 (0.0-0.012) X10*3/uL Nucleated RBC % (auto) 0.0 (0.0-0.2) /100WBC Sodium 139 (135-145) mmol/L Potassium 3.8 (3.3-5.1) mmol/L Chloride 106 (96-108) mmol/L Carbon Dioxide 26 (22-29) mmol/L Anion Gap 11 L (12-20) BUN 7 L (9-16) mg/dL Creatinine 0.53 (0.5-1.4) mg/dL Estim Creat Clear Calc 150.5 Estimated GFR > 60 Random Glucose 78 (60-115) mg/dL Calcium 9.6 (8.4-10.2) mg/dL Radiology Impression Discussion of test interpretation with radiology: I have reviewed the radiologist's reading. Radiologist Impression: [address] [address] [address] Scan Report Signed Patient: Graciela Cody MR#: [id number] : 2005 Acct:[id number] Age/Sex: 19 / F ADM Date: 06/06/25 Loc: HO.ED Attending Dr: Ordering Physician: Emiilano Fuentes Date of Service: 06/06/25 Procedure(s): CT mastoid Accession Number(s): [id number] cc: Physician,Unknown ; Emiliano Fuentes~ Report Number: [id number]: Total DLP = 287.00 mGy-cm Reason for Exam: pain, concern for mastoiditis CLINICAL HISTORY: pain, concern for mastoiditis CT temporal bones without contrast Comparison: None available Findings: Left auricular/periauricular soft tissue swelling. Narrowing of the left external auditory canal with secretions. Thickness of the left tympanic membrane is not well evaluated due to adjacent secretions. Partial opacification of the left middle ear cavity. The left mastoid air cells are clear. No right auricular/periauricular soft tissue swelling. Normal right external auditory canal. No thickening of the right tympanic membrane. The right middle ear cavity and mastoid air cells are clear. Bilateral middle ear ossicles, cochlea, semicircular canals, internal auditory canals and 7th nerve courses are normal. The scutum are sharp bilaterally. Clear paranasal sinuses. Temporomandibular joints are intact. No acute fracture or dislocation. Impression: Left otitis externa and otitis media. No left mastoiditis. This document has been electronically signed by: Renee Amin MD on 06/06/2025 16:54:01 Dictated By: Renee Gill MD Signed By: <Electronically signed by Renee Gill MD in OV> 06/06/251654 DD/ 53 TD/TT: 06/06/251653 [employer]: Discharge Plan Discharge Clinical Impression: Otitis media Qualifiers: Otitis media type: unspecified Chronicity: acute Qualified Code(s): H66.90 - Otitis media, unspecified, unspecified ear Otitis externa Qualifiers: Otitis externa type: diffuse Chronicity: acute Laterality: left Qualified Code(s): H60.312 - Diffuse otitis externa, left ear Patient Disposition: Home, Self-Care Instructions: Swimmer's Ear (ED), Ear Infection (ED) Additional Instructions: Continue Augmentin as directed. Finish all antibiotics. Ciprofloxacin drops as directed. Tylenol or ibuprofen available [id number] for pain. ENT referral if symptoms do not improve. Follow-up with your primary care provider. Call this week to schedule a follow- up appointment. Return to the emergency department if you have any worsening of symptoms, or any concerns. Get well soon! Prescriptions: New ciprofloxacin HCl 0.2 % dropperette 0.25 ml otic (ears) Q12H Qty: 14 0RF No Action amoxicillin-pot clavulanate 875-125 mg tablet 1 tab PO Q12H PRN (Reason: TM rupture) 10 Days Qty: 20 0RF Cryselle (28) 0.3-30 mg-mcg tablet 1 tab PO DAILY Referrals: [facility] [Provider Group, Ear, Nose, Throat] Referral Note: otitis media and externa Interventions: ED Discharge Assessment Last Done: 06/06/25 17:50 Discharge Date/Time: 06/06/25 17:51 Print Language: Portuguese
--- OUTSIDE RECORDS SUMMARY | 2025-06-06 14:40 | XMS_ITS | Patient Health Record ---
Author Organization [facility] Address [address] [facility] [address] [place] [address] Support Name Relationship Address Phone Graciela Cody Guarantor Unknown [id number] Reason For Referral No Information Immunizations Vaccine Route Administration Date Status Comme nts Varivax Unknown 07/25/2021 Pending TdaP Unknown 07/25/2021 Pending POLIOVIRUS VACCINE (state) Unknown 07/25/2021 Pending MMR Unknown 07/25/2021 Pending MCV4 Unknown 07/25/2021 Pending HPV VACCINE 4 VALENT IM Unknown 07/25/2021 Pending Hepatitis B State Ped./[place]. Unknown 07/25/2021 Pendin g Hepatitis A pediatric/adoles cent(state vaccine) Unknown 07/25/2021 Pending Plan Of Treatment No Information Insurance Providers Payer Name Payer Address Payer Phone Subscriber Number Group Number Insured Name Patient Relationship to Insured Coverage Start Date Coverage End Date [facility] [address] [place] [id number] Graciela Cody Self - patient is the insured COVID [facility] [id number] [place] [phone] [id number] Graciela Cody Self - patient is the insured
--- OUTSIDE RECORDS SUMMARY | 2025-06-06 14:40 | XMS_ITS | Clinical Summary ---
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
[2025-06-06 14:44] LABS: MANUAL DIFF FLAG NO
[2025-06-06 14:46] LABS: Hematocrit 38.6 % (37.0-47.0); Hemoglobin 12.9 g/dl (12.0-16.0); Imm Gran Abs Auto 0.02 X10*3/uL (0.00-0.03); Imm Gran Pct Auto 0.2 % (0.0-0.4); Lymphocytes Absolute Auto 2.5 X10*3/uL (1.2-4.9); Mean Corpuscular HGB Conc 33.4 g/dl (31.0-35.0); Mean Corpuscular Hemoglobin 28.3 pg (27.0-33.0); Mean Corpuscular Volume 84.6 fL (80.0-98.0); NRBC Abs Auto 0.000 X10*3/uL (0.0-0.012); NRBC Pct Auto 0.0 /100WBC (0.0-0.2); Platelet Count 251 X10*3/uL (160-400); Red Blood Count 4.56 X10*6/uL (4.20-5.50); White Blood Count 9.2 X10*3/uL (4.8-10.8)
[2025-06-06 14:57] LABS: Anion Gap 11 (12-20); Blood Urea Nitrogen 7 mg/dL (9-16); Calcium 9.6 mg/dL (8.4-10.2); Carbon Dioxide 26 mmol/L (22-29); Chloride 106 mmol/L (96-108); Creatinine Clr Calc Pharmacy 150.5; Estimated Glomerular Filt Rate > 60; Potassium 3.8 mmol/L (3.3-5.1); Sodium 139 mmol/L (135-145)
[2025-06-06 17:50] VITALS: BP 112/64; PULSE 74; RESP 18; TEMP -17.7; TEMP 0; O2SAT 99
== END 2025-06-06 17:51 | disposition home or self-care (01) ==
PROVIDERS: Physician Assistant; Emergency Provider Student in an Organized Health Care Education/Training Program
DX: H60.312 Diffuse otitis externa, left ear (principal); H66.92 Otitis media, unspecified, left ear
CPT/HCPCS: 36415; 70481; 80048; 85025; 99282; 99284

== ENCOUNTER → 2025-06-06 14:23 | Outpatient (BNV) | payer OTHER, SELFPAY | PROVIDERS: Visit Provider Radiology Diagnostic Radiology | DX: H60.92 Unspecified otitis externa, left ear (principal); H66.92 Otitis media, unspecified, left ear | CPT/HCPCS: 70481 ==

== ENCOUNTER 2025-06-20 17:40 | Emergency (ER) | payer OTHER, SELFPAY ==
[2025-06-20 17:43] VITALS: BP 122/74; PULSE 78; RESP 16; TEMP 37; O2SAT 99; BMI 25.4
--- NOTE | 2025-06-20 17:43 | ED_ITS ---
HPI - General Adult General Chief complaint: Ear Problems Stated complaint: left ear pain Time Seen by Provider: 06/20/25 20:20 Source: patient Mode of arrival: ambulatory Limitations: no limitations History of Present Illness ED Provider: Dr. Downey [facility] narrative: 20-year-old female presented hospital today for left ear pain started 2 days ago. Patient had finished antibiotic of amoxicillin. However she has continued to have drainage from the left ear. She is unable to get the otic drop as her insurance does not cover it. Related Data Home Medications ?Medication ?Instructions ?Recorded ?Confirmed norgestrel 0.3 mg-ethinyl 1 tab PO DAILY 04/06/25 estradiol 30 mcg tablet (Jaguar (28)) Previous Rx's ?Medication ?Instructions ?Recorded amoxicillin 875 mg-potassium 1 tab PO Q12H PRN TM rupt ure 10 06/03/25 clavulanate 125 mg tablet days #20 tabs ciprofloxacin HCl 0.2 % ear drops 0.25 ml otic (ears) Q12H #14 ea 06/06/25 in a dropperette ciprofloxacin HCl 500 mg tablet 500 mg PO Q12H 7 days #14 tabs 06/20/25 ofloxacin 0.3 % ear drops 10 drp otic (ears) DAILY 10 days 06/20/25 #10 mL Allergies Allergy/AdvReac Type Severity Reaction Status Date / Time No Known Allergies Allergy Verified 06/20/25 17:45 Review of Systems 2 Review of Systems: Pertinent review of systems as mentioned in HPI. All other system otherwise negative. [facility] Past Medical History [facility] Narrative: Medical history as mentioned in [facility] Social History Social History Advance Directives: No Advance Directives Information Provided: No Physical Exam ED Exam Exam: General: Pleasant, no distress, interacting appropriately Head: Normacephalic, atraumatic ENT: There was pus behind the TM membrane, there was drainage, tenderness in the otitis externa canal, no mastoiditis Skin: Warm and dry Psychiatric: Appropriate mood and thoughts Vital Signs: Vital Signs - 24 hr 06/20/25 17:43 06/20/25 20:44 Temperature 98.6 F 0 F L Pulse Rate 78 0 L Respiratory Rate 16 0 L Blood Pressure 122/74 00/00 L Pulse Oximetry 99 0 L Oxygen Delivery Method Room Air BMI result Body Mass Index 25.4 Course Course Course Narrative: This is a rapid medical exam performed by Satish Berg NP: Additional HPI, ROS, PE not included below will be deferred to primary provider. Patient is a 20y/o [place] Citizen speaking F presenting to the ED with L ear pain x 3 days. Seen here on 06/03 and 06/06 for same, also seen at walk in. Dx with TM perf and started on augmentin on 06/03. Started on ofloxacin on 06/06 for O.E. Reports brown discharge from ear. Pain radiating to head, reporting mastoid tenderness. Plan: labs Medical Decision Making Medical Decision Making [facility] Narrative: This is a 20-year-old female presented hospital today for left ear pain. We will plan to start patient on oral ciprofloxacin. We will plan to start patient on ofloxacin drops to. I suspect this is likely otitis externa however she does have pus behind the TM membrane. No sign of mastoiditis. Patient will be discharged home with otic antibiotic drops and oral antibiotic. Differential Diagnosis Differential Diagnoses: The differential diagnosis associated with the presentation includes Lab Data [facility] Lab Attestation statement: I reviewed the patient's lab results. 06/20/25 18:19 06/20/25 18:19 Labs: Lab Results 06/20/25 Range/Units 18:19 WBC 10.6 (4.8-10.8) X10*3/uL RBC 4.97 (4.20-5.50) X10*6/uL Hgb 13.7 (12.0-16.0) g/dl Hct 42.0 (37.0-47.0) % MCV 84.5 (80.0-98.0) fL MCH 27.6 (27.0-33.0) pg MCHC 32.6 (31.0-35.0) g/dl RDW 13.2 (11.0-16.0) % Plt Count 263 (160-400) X10*3/uL MPV 11.0 (9.4-12.3) fL Immature Gran % (Auto) 0.5 H (0.0-0.4) % Neut % (Auto) 61.2 (45-73) % Lymph % (Auto) 26.4 (20-40) % [place] % (Auto) 7.9 (2-11) % Eos % (Auto) 3.6 (0-4) % Baso % (Auto) 0.4 (0-2) % Lymph # (Auto) 2.8 (1.2-4.9) X10*3/uL [place] # (Auto) 0.8 (0.1-1.2) X10*3/uL Eos # (Auto) 0.4 (0.0-0.4) X10*3/uL Baso # (Auto) 0.0 (0.0-0.2) X10*3/uL Abs Immat Gran (auto) 0.05 H (0.00-0.03) X10*3/uL Absolute Neuts (auto) 6.5 (2.0-8.3) x10*3/uL Absolute Nucleated RBC 0.000 (0.0-0.012) X10*3/uL Nucleated RBC % (auto) 0.0 (0.0-0.2) /100WBC Sodium 139 (135-145) mmol/L Potassium 3.6 (3.3-5.1) mmol/L Chloride 106 (96-108) mmol/L Carbon Dioxide 23 (22-29) mmol/L Anion Gap 14 (12-20) BUN 12 (9-16) mg/dL Creatinine 0.65 (0.5-1.4) mg/dL Estim Creat Clear Calc 139.7 Estimated GFR > 60 Random Glucose 114 (60-115) mg/dL Calcium 9.7 (8.4-10.2) mg/dL Total Bilirubin 0.3 (0.0-1.0) mg/dL AST 22 (5-31) U/L ALT 29 (0-31) U/L Alkaline Phosphatase 113 (39-117) U/L Total Protein 8.0 (6.5-8.0) g/dL Albumin 4.8 (3.5-5.0) g/dL Social Determinants Language barrier Discharge Plan Discharge Clinical Impression: Otitis externa Qualifiers: Otitis externa type: other infective Chronicity: acute Laterality: left Q ualified Code(s): H60.392 - Other infective otitis externa, left ear Patient Disposition: Home, Self-Care Prescriptions: New ciprofloxacin HCl 500 mg tablet 500 mg PO Q12H 7 Days Qty: 14 0RF ofloxacin 0.3 % drops 10 drp otic (ears) DAILY 10 Days Qty: 10 0RF No Action ciprofloxacin HCl 0.2 % dropperette 0.25 ml otic (ears) Q12H Qty: 14 0RF amoxicillin-pot clavulanate 875-125 mg tablet 1 tab PO Q12H PRN (Reason: TM rupture) 10 Days Qty: 20 0RF Cryselle (28) 0.3-30 mg-mcg tablet 1 tab PO DAILY Stand Alone Forms: Work/School Release Interventions: ED Discharge Assessment Last Done: 06/20/25 20:44 Discharge Date/Time: 06/20/25 20:45 Print Language: [place] Citizen
[2025-06-20 18:24] LABS: MANUAL DIFF FLAG NO
[2025-06-20 18:46] LABS: Alanine Aminotransferase 29 U/L (0-31); Albumin Level 4.8 g/dL (3.5-5.0); Alkaline Phosphatase 113 U/L (39-117); Anion Gap 14 (12-20); Aspartate Amino Transferase 22 U/L (5-31); Blood Urea Nitrogen 12 mg/dL (9-16); Calcium 9.7 mg/dL (8.4-10.2); Carbon Dioxide 23 mmol/L (22-29); Chloride 106 mmol/L (96-108); Creatinine Clr Calc Pharmacy 139.7; Estimated Glomerular Filt Rate > 60; Potassium 3.6 mmol/L (3.3-5.1); Sodium 139 mmol/L (135-145); Total Protein 8.0 g/dL (6.5-8.0)
[2025-06-20 18:49] LABS: Hematocrit 42.0 % (37.0-47.0); Hemoglobin 13.7 g/dl (12.0-16.0); Imm Gran Abs Auto 0.05 X10*3/uL (0.00-0.03); Imm Gran Pct Auto 0.5 % (0.0-0.4); Lymphocytes Absolute Auto 2.8 X10*3/uL (1.2-4.9); Mean Corpuscular HGB Conc 32.6 g/dl (31.0-35.0); Mean Corpuscular Hemoglobin 27.6 pg (27.0-33.0); Mean Corpuscular Volume 84.5 fL (80.0-98.0); NRBC Abs Auto 0.000 X10*3/uL (0.0-0.012); NRBC Pct Auto 0.0 /100WBC (0.0-0.2); Platelet Count 263 X10*3/uL (160-400); Red Blood Count 4.97 X10*6/uL (4.20-5.50); White Blood Count 10.6 X10*3/uL (4.8-10.8)
--- OUTSIDE RECORDS SUMMARY | 2025-06-20 19:58 | XMS_ITS | Clinical Summary ---
Author Organization [facility] Address [address] [place] [address] Care Team Providers Care Neighborhood Aide Name Role Phone Unavailable Primary Care Provider [...] Drug Screen 09/03/2024 Depression Annual Screen 09/03/2024 [id number] ( season) 2025 Imm-Influenza (#1) 2025 Dental [...] Most Recently Relevant to Health Maintenance [place] Sub[place] Plan / Payer (Ef fective 2021-Present) Name:Graciela Donato Relation to Subscriber:Self Name:Graciela Donato Payer ID:[id number] Group ID:Not on file Type:Medicaid Address: [address] [place] [id number] [place] [address] [place]
--- OUTSIDE RECORDS SUMMARY | 2025-06-20 19:58 | XMS_ITS | Patient Health Record ---
Author Organization [facility] Address [address] [facility] [address] [place] [address] Support Name Relationship Address Phone Graciela Cody Guarantor Unknown [id number] Reason For Referral No Information Immunizations Vaccine Route Administration Date Status Comme nts Hepatitis A pediatric/adoles cent(state vaccine) Unknown 07/25/2021 Pending Hepatitis B State Ped./[place]. Unknown 07/25/2021 Pendin g HPV VACCINE 4 VALENT IM Unknown 07/25/2021 Pending MCV4 Unknown 07/25/2021 Pending MMR Unknown 07/25/2021 Pending POLIOVIRUS VACCINE (state) Unknown 07/25/2021 Pending TdaP Unknown 07/25/2021 Pending Varivax Unknown 07/25/2021 Pending Plan Of Treatment No Information Insurance Providers Payer Name Payer Address Payer Phone Subscriber Number Group Number Insured Name Patient Relationship to Insured Coverage Start Date Coverage End Date [facility] [address] [place] [id number] Graciela Cody Self - patient is the insured COVID 19 [facility] [id number] [place] [phone] [id number] Graciela Cody Self - patient is the insured
--- OUTSIDE RECORDS SUMMARY | 2025-06-20 19:58 | XMS_ITS | Clinical Summary ---
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
[2025-06-20 20:44] VITALS: BP 00/00; PULSE 0; RESP 0; TEMP -17.7; TEMP 0; O2SAT 0
== END 2025-06-20 20:45 | disposition home or self-care (01) ==
PROVIDERS: Registered Nurse Emergency; Emergency Provider Student in an Organized Health Care Education/Training Program
DX: H60.392 Other infective otitis externa, left ear (principal); H92.02 Otalgia, left ear
CPT/HCPCS: 36415; 80053; 85025; 99282; 99283